=== PATIENT | female | born 1935 | race Caucasian/White ===

== ENCOUNTER 2016-11-05 23:12 | Inpatient (IN) | payer MEDICARE, OTHER ==
[~2016-11-05] VITALS: Ht 149.9 cm; Wt 50.2 kg
[2016-11-06 01:58] LABS: Hematocrit 33.7 % (36.0-46.0); Hemoglobin 10.9 g/dL (12.2-16.2); Mean Corpuscular Hemoglobin 29.4 pg (28.0-32.0); Mean Corpuscular Hgb Conc. 32.2 g/dL (32.0-36.0); Mean Corpuscular Volume 91.1 fL (80.0-100.0); Mean Platelet Volume 11.8 fL (7.4-10.4); Platelet Count (auto) 170 10^3/uL (140-450); Red Cell Distribution Width 15.1 % (11.6-16.0); SUSPECT VIEW TRANSMISSION; White Blood Cell 14.4 10^3/uL (4.4-10.8)
[2016-11-06 02:00] LABS: Metamyelocytes % 0; Myelocytes % 0; Promyelocytes % 0; Reactive Lymphocytes 0
[2016-11-06 02:12] LABS: Platelet Estimate Adequate; RBC Morphology Normal
[2016-11-06 02:18] LABS: Albumin 3.5 g/dL (3.4-5.0); Calcium 8.9 mg/dL (8.5-10.1); Potassium 3.2 mmol/L (3.5-5.1)
[2016-11-06 02:19] LABS: BUN/Creatinine Ratio 10.4
[2016-11-06 02:30] LABS: Bilirubin, Total 3.8 mg/dL (0.2-1.0); Total Protein 7.5 g/dL (6.4-8.2)
[2016-11-06] MEDS ORDERED: HYDROmorphone HCL 2 MG/ML VL IV ONE (03:15)
[2016-11-06] MEDS ORDERED: ONDANSETRON HCL 4 MG/2 ML VIAL IV ONE (03:15)
[2016-11-06] MEDS ORDERED: cefTRIAXone 1GM/50ML D5W 50 ML IV ONE (03:45)
[2016-11-06] MEDS ORDERED: metroNIDAZOLE 500MG/100ML 100 ML IV ONE (03:45)
[2016-11-06] MEDS ORDERED: ALBUTEROL SULF 2.5 MG/0.5ML(0.5%) NEB SOLN NEB ONE (08:30)
[2016-11-06] MEDS ORDERED: IPRATROPIUM BROM 0.5 MG/2.5ML INH SOL NEB ONE (08:30)
[2016-11-06] MEDS: SODIUM CHLORIDE 0.9% 1,000 ML IV SCH ×2 (09:38→11:20)
[2016-11-06] MEDS ORDERED: DOCUSATE SOD 100 MG CAP PO PRN (09:45)
[2016-11-06] MEDS ORDERED: ACETAMINOPHEN 325 MG TAB PO PRN (09:45)
[2016-11-06] MEDS ORDERED: DEXTROSE (50%) 50ML SYRG IV PRN (09:45)
[2016-11-06] MEDS ORDERED: POTASSIUM CHLORIDE 8 MEQ TAB PO ONE (09:45)
[2016-11-06] MEDS ORDERED: MORPHINE SULF INJ 2 MG/ML SYRINGE 1ML IV PRN (09:45)
[2016-11-06] MEDS ORDERED: NITROGLYCERIN 0.4 MG SL TAB SL PRN (09:45)
[2016-11-06] MEDS ORDERED: FAMOTIDINE 20 MG TAB PO SCH (10:00)
[2016-11-06] MEDS: ZINC SULFATE 220 MG CAP PO SCH (10:13)
[2016-11-06] MEDS: MULTIPLE VITAMIN TAB PO SCH (10:13)
[2016-11-06] MEDS: FAMOTIDINE 20 MG TAB PO SCH (10:14)
[2016-11-06] MEDS: ASCORBIC ACID 500 MG TAB PO SCH ×2 (10:15→21:35)
[2016-11-06 10:49] LABS: INR 1.29 (0.9-1.15); Prothrombin Time 13.3 sec (9.37-12.3)
[2016-11-06] MEDS: InsuLIN REG 1unit/0.01ml Soln (100units/ml) SC SCH ×3 (11:30→21:48)
[2016-11-06] MEDS: ACCU-CHEK COMFORT CURVE STRIP VI SCH ×3 (11:31→22:25)
[2016-11-06 11:41] VITALS: BP 150/72
[2016-11-06] MEDS: MORPHINE SULF INJ 2 MG/ML SYRINGE 1ML IV PRN ×2 (12:04→18:15)
[2016-11-06 13:00] VITALS: BP 150/72
[2016-11-06] MEDS: metroNIDAZOLE 500MG/100ML 100 ML IV SCH ×2 (14:30→21:38)
[2016-11-06 15:00] VITALS: BP 142/62
[2016-11-06] MEDS: HYDROcodone-ACET 5/325MG TAB PO PRN (15:32)
[2016-11-06] MEDS ORDERED: PHYTONADIONE (VIT K)10 MG/ML 1ML VIAL SUBCUT ONE (20:00)
[2016-11-06] MEDS: TEMAZEPAM 15 MG CAP PO PRN (21:41)
[2016-11-06] MEDS: cloNIDine HCL 0.1 MG TAB PO PRN (21:45)
[2016-11-06 21:53] VITALS: BP 179/78
[2016-11-07 05:00] VITALS: BP 159/69
[2016-11-07] MEDS: HYDROcodone-ACET 5/325MG TAB PO PRN ×2 (05:20→14:49)
[2016-11-07] MEDS: cloNIDine HCL 0.1 MG TAB PO PRN (05:20)
[2016-11-07] MEDS: InsuLIN REG 1unit/0.01ml Soln (100units/ml) SC SCH ×4 (05:22→22:00)
[2016-11-07] MEDS: ACCU-CHEK COMFORT CURVE STRIP VI SCH ×4 (05:22→22:00)
[2016-11-07] MEDS: metroNIDAZOLE 500MG/100ML 100 ML IV SCH ×3 (05:22→23:26)
[2016-11-07 06:21] LABS: Basophils # (auto) 0 uL; Basophils % (auto) 0.2 % (0.0-2.0); Eosinophils # (auto) 0 uL; Eosinophils % (auto) 0.2 % (0.0-7.0); Hematocrit 27.9 % (36.0-46.0); Hemoglobin 9.1 g/dL (12.2-16.2); Lymphocytes # (auto) 0.4 uL; Lymphocytes % (auto) 8.2 % (10.0-50.0); Mean Corpuscular Hemoglobin 29.6 pg (28.0-32.0); Mean Corpuscular Hgb Conc. 32.4 g/dL (32.0-36.0); Mean Corpuscular Volume 91.4 fL (80.0-100.0); Mean Platelet Volume 12.4 fL (7.4-10.4); Monocytes # (auto) 0.5 uL; Monocytes % (auto) 8.9 % (0.0-12.0); Neutrophils # (auto) 4.4 uL; Neutrophils % (auto) 82.5 % (37.0-80.0); Platelet Count (auto) 138 10^3/uL (140-450); Red Cell Distribution Width 15.6 % (11.6-16.0); White Blood Cell 5.4 10^3/uL (4.4-10.8)
[2016-11-07 06:49] LABS: Albumin 2.9 g/dL (3.4-5.0); BUN/Creatinine Ratio 16.1; Bilirubin, Total 6.2 mg/dL (0.2-1.0); Calcium 8.7 mg/dL (8.5-10.1); Potassium 3.3 mmol/L (3.5-5.1); Total Protein 6.3 g/dL (6.4-8.2)
[2016-11-07] MEDS ORDERED: cefTRIAXone 1GM/50ML D5W 50 ML IV SCH (09:00)
[2016-11-07] MEDS: ZINC SULFATE 220 MG CAP PO SCH (09:10)
[2016-11-07] MEDS: cefTRIAXone 1GM/50ML D5W 50 ML IV SCH (09:10)
[2016-11-07] MEDS: MULTIPLE VITAMIN TAB PO SCH (09:11)
[2016-11-07] MEDS: ASCORBIC ACID 500 MG TAB PO SCH ×2 (09:11→23:26)
[2016-11-07] MEDS: FAMOTIDINE 20 MG TAB PO SCH (09:11)
[2016-11-07 09:27] VITALS: BP 141/48
[2016-11-07] MEDS ORDERED: ATENOLOL 25 MG TAB PO ONE (10:15)
[2016-11-07] MEDS: ONDANSETRON HCL 4 MG/2 ML VIAL IV PRN ×2 (10:51→21:51)
[2016-11-07] MEDS: MORPHINE SULF INJ 2 MG/ML SYRINGE 1ML IV PRN ×2 (10:51→21:49)
[2016-11-07] MEDS ORDERED: POTASSIUM CHLORIDE 20 MEQ, LIDOCAINE 1% (LOCAL ANESTH.) 2 ML in SODIUM CHL 0.9% 100 ML IV ONE (11:30)
[2016-11-07 12:19] LABS: INR 1.2 (0.9-1.15); Prothrombin Time 12.4 sec (9.37-12.3)
[2016-11-07 13:00] VITALS: BP 136/67
[2016-11-07] MEDS ORDERED: AMLO5TAB2 PO (13:01)
[2016-11-07] MEDS ORDERED: ROSU10TA16 PO (13:07)
[2016-11-07] MEDS ORDERED: FENO160T8 PO (13:07)
[2016-11-07] MEDS ORDERED: GABA-494 PO (13:07)
[2016-11-07] MEDS ORDERED: ATE50T PO (13:07)
[2016-11-07] MEDS ORDERED: NOR5T PO (13:07)
[2016-11-07] MEDS ORDERED: METF-312 PO (13:07)
[2016-11-07] MEDS ORDERED: ALPR1TAB7 PO (13:07)
[2016-11-07] MEDS ORDERED: OME20T PO (13:07)
[2016-11-07] MEDS ORDERED: CLOP75TA41 PO (13:07)
[2016-11-07] MEDS ORDERED: [UNRECOGNIZED DRUG - CODE] PO (13:07)
[2016-11-07] MEDS ORDERED: CETI10TA93 PO (13:07)
[2016-11-07] MEDS ORDERED: MAGN400T21 PO (13:07)
[2016-11-07 17:00] VITALS: BP 139/51
[2016-11-07] MEDS: SODIUM CHLORIDE 0.9% 1,000 ML IV SCH (18:33)
[2016-11-07 22:00] VITALS: BP 153/75
[2016-11-08] MEDS: MORPHINE SULF INJ 2 MG/ML SYRINGE 1ML IV PRN ×4 (03:20→22:08)
[2016-11-08] MEDS: ONDANSETRON HCL 4 MG/2 ML VIAL IV PRN ×4 (03:20→22:09)
[2016-11-08 04:46] VITALS: BP 122/66
[2016-11-08 04:47] VITALS: BP 161/74
[2016-11-08] MEDS: InsuLIN REG 1unit/0.01ml Soln (100units/ml) SC SCH ×4 (05:29→21:38)
[2016-11-08] MEDS: metroNIDAZOLE 500MG/100ML 100 ML IV SCH ×3 (05:29→21:30)
[2016-11-08] MEDS: ACCU-CHEK COMFORT CURVE STRIP VI SCH ×4 (05:30→21:38)
[2016-11-08 05:43] LABS: BUN/Creatinine Ratio 17.8; Bilirubin, Total 2.5 mg/dL (0.2-1.0); Potassium 3.9 mmol/L (3.5-5.1); Total Protein 6.7 g/dL (6.4-8.2)
[2016-11-08 05:44] LABS: Basophils # (auto) 0.1 uL; Basophils % (auto) 0.5 % (0.0-2.0); Eosinophils # (auto) 0 uL; Eosinophils % (auto) 0.2 % (0.0-7.0); Hematocrit 29.9 % (36.0-46.0); Hemoglobin 9.8 g/dL (12.2-16.2); Lymphocytes # (auto) 1.2 uL; Lymphocytes % (auto) 10.5 % (10.0-50.0); Mean Corpuscular Hemoglobin 30.1 pg (28.0-32.0); Mean Corpuscular Hgb Conc. 32.9 g/dL (32.0-36.0); Mean Corpuscular Volume 91.7 fL (80.0-100.0); Mean Platelet Volume 12.1 fL (7.4-10.4); Monocytes # (auto) 0.7 uL; Monocytes % (auto) 6.4 % (0.0-12.0); Neutrophils # (auto) 9.6 uL; Neutrophils % (auto) 82.4 % (37.0-80.0); Platelet Count (auto) 135 10^3/uL (140-450); Red Cell Distribution Width 14.6 % (11.6-16.0); SUSPECT VIEW TRANSMISSION; White Blood Cell 11.6 10^3/uL (4.4-10.8)
[2016-11-08 09:00] VITALS: BP 145/81
[2016-11-08] MEDS: cefTRIAXone 1GM/50ML D5W 50 ML IV SCH (09:00)
[2016-11-08] MEDS: MULTIPLE VITAMIN TAB PO SCH (09:50)
[2016-11-08] MEDS: ASCORBIC ACID 500 MG TAB PO SCH ×3 (09:50→21:37)
[2016-11-08] MEDS: ATENOLOL 25 MG TAB PO SCH (09:50)
[2016-11-08] MEDS: ZINC SULFATE 220 MG CAP PO SCH (09:50)
[2016-11-08] MEDS: FAMOTIDINE 20 MG TAB PO SCH (09:50)
[2016-11-08] MEDS: SODIUM CHLORIDE 0.9% 1,000 ML IV SCH (11:43)
[2016-11-08] MEDS: cloNIDine HCL 0.1 MG TAB PO PRN ×2 (12:38→22:04)
[2016-11-08] MEDS ORDERED: cloNIDine HCL 0.1 MG TAB PO ONE (13:00)
[2016-11-08 17:00] VITALS: BP 153/69
[2016-11-08] MEDS ORDERED: PHYTONADIONE (VIT K)10 MG/ML 1ML VIAL SUBCUT ONE (17:15)
[2016-11-08 23:05] VITALS: BP 167/73
[2016-11-09] MEDS: cloNIDine HCL 0.1 MG TAB PO PRN ×5 (04:43→21:03)
[2016-11-09] MEDS: SODIUM CHLORIDE 0.9% 1,000 ML IV SCH ×2 (04:48→22:21)
[2016-11-09 05:00] VITALS: BP 172/98
[2016-11-09 05:14] LABS: Basophils # (auto) 0 uL; Basophils % (auto) 0.5 % (0.0-2.0); Eosinophils # (auto) 0 uL; Eosinophils % (auto) 0.1 % (0.0-7.0); Hematocrit 29.4 % (36.0-46.0); Hemoglobin 9.4 g/dL (12.2-16.2); Lymphocytes # (auto) 0.6 uL; Lymphocytes % (auto) 12.1 % (10.0-50.0); Mean Corpuscular Hemoglobin 29.4 pg (28.0-32.0); Mean Corpuscular Hgb Conc. 32.1 g/dL (32.0-36.0); Mean Corpuscular Volume 91.7 fL (80.0-100.0); Mean Platelet Volume 11.2 fL (7.4-10.4); Monocytes # (auto) 0.4 uL; Monocytes % (auto) 8.5 % (0.0-12.0); Neutrophils # (auto) 3.9 uL; Neutrophils % (auto) 78.8 % (37.0-80.0); Platelet Count (auto) 152 10^3/uL (140-450); Red Cell Distribution Width 14.6 % (11.6-16.0); White Blood Cell 4.9 10^3/uL (4.4-10.8)
[2016-11-09] MEDS: metroNIDAZOLE 500MG/100ML 100 ML IV SCH ×3 (05:17→21:03)
[2016-11-09 05:27] LABS: Prothrombin Time 12.2 sec (9.37-12.3)
[2016-11-09 05:33] LABS: INR 1.18 (0.9-1.15)
[2016-11-09 05:36] LABS: Albumin 2.7 g/dL (3.4-5.0); Calcium 8.5 mg/dL (8.5-10.1); Potassium 3.2 mmol/L (3.5-5.1)
[2016-11-09 05:41] LABS: Bilirubin, Total 1.4 mg/dL (0.2-1.0); Total Protein 6.3 g/dL (6.4-8.2)
[2016-11-09] MEDS: ONDANSETRON HCL 4 MG/2 ML VIAL IV PRN (06:18)
[2016-11-09] MEDS: MORPHINE SULF INJ 2 MG/ML SYRINGE 1ML IV PRN (06:18)
[2016-11-09] MEDS: ACCU-CHEK COMFORT CURVE STRIP VI SCH ×4 (06:37→21:03)
[2016-11-09] MEDS: InsuLIN REG 1unit/0.01ml Soln (100units/ml) SC SCH ×4 (06:37→21:03)
[2016-11-09 08:59] VITALS: BP 182/85
[2016-11-09] MEDS: MULTIPLE VITAMIN TAB PO SCH (09:24)
[2016-11-09] MEDS: FAMOTIDINE 20 MG TAB PO SCH (09:24)
[2016-11-09] MEDS: ATENOLOL 25 MG TAB PO SCH (09:25)
[2016-11-09] MEDS: cefTRIAXone 1GM/50ML D5W 50 ML IV SCH (09:27)
[2016-11-09] MEDS: ASCORBIC ACID 500 MG TAB PO SCH ×2 (10:00→21:03)
[2016-11-09] MEDS: ZINC SULFATE 220 MG CAP PO SCH (10:00)
[2016-11-09] MEDS ORDERED: cloNIDine HCL 0.1 MG TAB PO ONE (10:30)
[2016-11-09 11:35] VITALS: BP 185/85
[2016-11-09] MEDS: HYDROcodone-ACET 5/325MG TAB PO PRN ×2 (11:52→21:14)
[2016-11-09] MEDS ORDERED: ENALAPRIL MALEATE 2.5 MG TAB PO ONE (12:45)
[2016-11-09 12:56] VITALS: BP 176/58
[2016-11-09] MEDS ORDERED: ENALAPRILAT 1.25 MG/ML-1ML VIAL IV PRN (16:00)
[2016-11-09 16:39] VITALS: BP 170/62
[2016-11-09 21:21] VITALS: BP 160/60
[2016-11-10] MEDS: TEMAZEPAM 15 MG CAP PO PRN (00:24)
[2016-11-10] MEDS: HYDROcodone-ACET 5/325MG TAB PO PRN (03:37)
[2016-11-10] MEDS: ONDANSETRON HCL 4 MG/2 ML VIAL IV PRN ×3 (04:50→21:30)
[2016-11-10] MEDS: MORPHINE SULF INJ 2 MG/ML SYRINGE 1ML IV PRN ×3 (04:50→21:29)
[2016-11-10 05:00] VITALS: BP 170/72
[2016-11-10] MEDS: metroNIDAZOLE 500MG/100ML 100 ML IV SCH ×3 (05:01→21:29)
[2016-11-10] MEDS: ACCU-CHEK COMFORT CURVE STRIP VI SCH ×2 (05:59→11:17)
[2016-11-10] MEDS: InsuLIN REG 1unit/0.01ml Soln (100units/ml) SC SCH ×2 (06:00→11:18)
[2016-11-10 09:00] VITALS: BP 157/53
[2016-11-10] MEDS: ENALAPRIL MALEATE 2.5 MG TAB PO SCH (09:03)
[2016-11-10] MEDS: ATENOLOL 25 MG TAB PO SCH (09:03)
[2016-11-10] MEDS: FAMOTIDINE 20 MG TAB PO SCH (09:03)
[2016-11-10] MEDS: ZINC SULFATE 220 MG CAP PO SCH (09:03)
[2016-11-10] MEDS: cefTRIAXone 1GM/50ML D5W 50 ML IV SCH (09:17)
[2016-11-10] MEDS: MULTIPLE VITAMIN TAB PO SCH (09:18)
[2016-11-10] MEDS: ASCORBIC ACID 500 MG TAB PO SCH ×2 (09:18→21:29)
[2016-11-10 13:00] VITALS: BP 192/66
[2016-11-10] MEDS: cloNIDine HCL 0.1 MG TAB PO PRN (13:12)
[2016-11-10] MEDS: SODIUM CHLORIDE 0.9% 1,000 ML IV SCH (13:38)
[2016-11-10] MEDS ORDERED: POTASSIUM CHLORIDE 40 MEQ, LIDOCAINE 1% (LOCAL ANESTH.) 4 ML in SODIUM CHL 0.9% 250 ML IV ONE (14:00)
[2016-11-10 17:00] VITALS: BP 166/62
[2016-11-10 21:57] VITALS: BP 173/62
[2016-11-11] MEDS: ONDANSETRON HCL 4 MG/2 ML VIAL IV PRN ×3 (03:00→15:54)
[2016-11-11] MEDS: MORPHINE SULF INJ 2 MG/ML SYRINGE 1ML IV PRN ×3 (03:00→15:54)
[2016-11-11 05:04] VITALS: BP 183/60
[2016-11-11] MEDS: metroNIDAZOLE 500MG/100ML 100 ML IV SCH ×3 (05:35→21:21)
[2016-11-11] MEDS: MULTIPLE VITAMIN TAB PO SCH (08:58)
[2016-11-11] MEDS: ZINC SULFATE 220 MG CAP PO SCH (08:58)
[2016-11-11] MEDS: FAMOTIDINE 20 MG TAB PO SCH (08:59)
[2016-11-11] MEDS: ENALAPRIL MALEATE 2.5 MG TAB PO SCH (08:59)
[2016-11-11] MEDS: ATENOLOL 25 MG TAB PO SCH (08:59)
[2016-11-11] MEDS: cefTRIAXone 1GM/50ML D5W 50 ML IV SCH (09:00)
[2016-11-11] MEDS ORDERED: SODIUM CHLORIDE 0.9% 1,000 ML IV SCH (09:38)
[2016-11-11] MEDS: ASCORBIC ACID 500 MG TAB PO SCH ×2 (10:00→21:20)
[2016-11-11] MEDS: cloNIDine HCL 0.1 MG TAB PO PRN (11:16)
[2016-11-11] MEDS: HYDROcodone-ACET 5/325MG TAB PO PRN (11:17)
[2016-11-11] MEDS ORDERED: POTASSIUM CHL 20MEQ/100ML 100 ML IV ONE (11:45)
[2016-11-11] MEDS ORDERED: amLODIPine BESYLATE 5 MG TAB PO ONE (11:45)
[2016-11-11 12:00] VITALS: BP 201/73
[2016-11-11 16:24] VITALS: BP 142/52
[2016-11-11 19:58] VITALS: BP 151/54
[2016-11-11 22:25] VITALS: BP_SYST 121; BP_SYST 151; BP_DIAS 54; BP_DIAS 71
[2016-11-12] MEDS ORDERED: amLODIPine BESYLATE 5 MG TAB PO SCH (10:00)
[2016-11-12] MEDS ORDERED: ENALAPRIL MALEATE 2.5 MG TAB PO SCH (10:00)
== END 2016-11-11 22:47 | disposition short-term general hospital (02) | DRG 445 ==
LOC: EDBD 23:12 → ER 23:16 → TELE 23:17 → TELE-EAST 11-06 11:50
PROVIDERS: ADMIT Internal Medicine; ATTEND Internal Medicine
DX: K80.50 Calculus of bile duct without cholangitis or cholecystitis without obstruction (principal); D68.9 Coagulation defect, unspecified; R65.10 Systemic inflammatory response syndrome (SIRS) of non-infectious origin without acute organ dysfunction; K80.20 Calculus of gallbladder without cholecystitis without obstruction; N18.3 Chronic kidney disease, stage 3 (moderate); I25.10 Atherosclerotic heart disease of native coronary artery without angina pectoris; E11.22 Type 2 diabetes mellitus with diabetic chronic kidney disease; E11.21 Type 2 diabetes mellitus with diabetic nephropathy; E87.6 Hypokalemia; I12.9 Hypertensive chronic kidney disease with stage 1 through stage 4 chronic kidney disease, or unspecified chronic kidney disease; F17.210 Nicotine dependence, cigarettes, uncomplicated; J44.9 Chronic obstructive pulmonary disease, unspecified; D63.8 Anemia in other chronic diseases classified elsewhere; I25.2 Old myocardial infarction; Z87.442 Personal history of urinary calculi; Z90.710 Acquired absence of both cervix and uterus; Z88.0 Allergy status to penicillin; Z82.49 Family history of ischemic heart disease and other diseases of the circulatory system; I35.0 Nonrheumatic aortic (valve) stenosis; Z95.5 Presence of coronary angioplasty implant and graft
CPT/HCPCS: 36415; 71010; 74176; 74181; 76705; 80053; 82150; 82962; 83036; 83690; 84132; 85007; 85025; 85027; 85610; 87040; 87081; 93005; 93306; 94640; 96365; 96368; 96375; J0696; J2001; J2405; J3430; J3480; J3490